=== PATIENT | female | born 1985 | race Caucasian/White ===

== ENCOUNTER → 2016-09-09 | Outpatient (REF) ==
[~2016-09-09] MED LIST: ALLERGY RELIEF25 M1 PO; CITALOPRAM10 MG PO; YAZ 3 MG-0.02 M1 TAB PO
== END ==
LOC: WSOH 13:09 → WSPT 14:00
DX: Z02.1 Encounter for pre-employment examination (principal)

== ENCOUNTER → 2016-09-11 | Outpatient (REF) | LOC: WSOH 10:25 | DX: Z02.89 Encounter for other administrative examinations (principal) ==

== ENCOUNTER → 2016-09-12 | Outpatient (REF) | LOC: WSOH 15:08 | DX: Z02.89 Encounter for other administrative examinations (principal) ==

== ENCOUNTER → 2016-09-19 | Outpatient (REF) | LOC: WSOH 14:57 | DX: Z01.89 Encounter for other specified special examinations (principal) ==

== ENCOUNTER → 2016-12-08 | Outpatient (REF) | LOC: WSOH 10:03 | DX: Z02.89 Encounter for other administrative examinations (principal) ==

== ENCOUNTER → 2020-08-14 | Outpatient (CLI) | payer OTHER ==
[2020-08-14 07:53] LABS: BASO % 1.1 % (0.0-2.0); EOS # 0.1 (0.0-0.7); EOS % 3.4 % (0-4.0); GRAN # 1.7 (1.4-6.5); HEMATOCRIT 41.9 % (37.0-47.0); HEMOGLOBIN 14.2 g/dl (12.5-16.0); LYMPH # 1.4 (1.2-3.4); LYMPH % 36.3 % (20.0-51.0); MEAN CELL VOLUME 87 fl (80.0-100.0); MEAN CORPUSCULAR HEMOGLOBIN 29 pg (27.0-31.0); MEAN CORPUSCULAR HGB CONC 34 g/dl (33.0-37.0); MEAN PLATELET VOLUME 9.3 fl (7.4-10.4); MONO # 0.5 (0.1-0.6); MONO % 13.9 % (1.7-9.3); PLATELET COUNT 214 K/mm3 (130-400); RED BLOOD COUNT 4.83 M/mm3 (4.10-5.30); REDCELL DISTRIBUTION WIDTH-CV 12.2 % (11.5-14.5)
[2020-08-14 08:07] LABS: ALBUMIN 4.3 gm/dL (3.5-5.0); BILIRUBIN,TOTAL 0.2 mg/dL (0.0-1.0); CALCIUM 9.1 mg/dL (8.4-10.2); CHOLESTEROL RISK RATIO 2.8; CREATININE, serum 0.62 (0.52-1.25); POTASSIUM 4.5 mmol/L (3.4-5.0); TOTAL PROTEIN 7.7 gm/dL (6.4-8.2)
[2020-08-14 08:37] LABS: TSH w REFLEX 0.566 uIU/mL (0.465-4.680)
== END ==
LOC: COL.LAB 07:18
DX: Z01.89 Encounter for other specified special examinations (principal)

== ENCOUNTER → 2020-11-09 | Outpatient (REF) | LOC: COL.EMP 13:41 | DX: Z20.822 Contact with and (suspected) exposure to COVID-19 (principal) ==

== ENCOUNTER → 2021-12-11 | Outpatient (CLI) | payer OTHER ==
[2021-12-11 11:01] LABS: HEMATOCRIT 39.2 % (37.0-47.0); HEMOGLOBIN 13.2 g/dl (12.5-16.0); MEAN CELL VOLUME 89 fl (80.0-100.0); MEAN CORPUSCULAR HEMOGLOBIN 30 pg (27-31); MEAN CORPUSCULAR HGB CONC 34 g/dl (33.0-37.0); MEAN PLATELET VOLUME 9.5 fl (7.4-10.4); PLATELET COUNT 250 K/mm3 (130-400); RED BLOOD COUNT 4.43 M/mm3 (4.10-5.30); REDCELL DISTRIBUTION WIDTH-CV 12.4 % (11.5-14.5)
[2021-12-11 11:18] LABS: BILIRUBIN,TOTAL 0.4 mg/dL (0.2-1.2); CALCIUM 9.3 mg/dL (8.4-10.2); CHOLESTEROL RISK RATIO 3.1; CREATININE, serum 0.74 mg/dL (0.57-1.11); POTASSIUM 4.1 mmol/L (3.5-4.5); TOTAL PROTEIN 7.1 gm/dL (6.2-8.1)
[2021-12-11 11:38] LABS: THYROID STIMULATING HORMONE 0.658 uIU/mL (0.350-4.940)
== END ==
LOC: COL.LAB 10:31
PROVIDERS: Family Medicine
DX: Z00.00 Encounter for general adult medical examination without abnormal findings (principal); Z13.220 Encounter for screening for lipoid disorders; Z13.29 Encounter for screening for other suspected endocrine disorder

== ENCOUNTER → 2022-02-18 | Outpatient (CLI) | payer OTHER | LOC: COL.RAD 09:18 | DX: G43.109 Migraine with aura, not intractable, without status migrainosus (principal) | CPT/HCPCS: A9575 ==

== ENCOUNTER → 2022-05-07 | Outpatient (CLI) | payer OTHER | LOC: COL.RAD 04-07 10:30 | DX: G43.109 Migraine with aura, not intractable, without status migrainosus (principal) ==